=== PATIENT | male | born 2000 | race African-American/Black ===

== ENCOUNTER 2023-07-25 23:58 | Emergency (ER) | payer OTHER, SELFPAY ==
[2023-07-25 23:58] VITALS: BP 130/80; PULSE 84; RESP 15; TEMP 36.5; O2SAT 100
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
[2023-07-26 01:29] VITALS: BP 132/76; PULSE 82; RESP 16; O2SAT 99
== END 2023-07-26 01:30 | disposition home or self-care (01) ==
LOC: ANHED 07-26 01:13
PROVIDERS: Emergency Provider Emergency Medicine
DX: F20.9 Schizophrenia, unspecified (principal); Z59.00 Homelessness unspecified
CPT/HCPCS: 99281

== ENCOUNTER 2023-07-27 08:08 | Emergency (ER) | payer OTHER, SELFPAY ==
[2023-07-27 08:32] VITALS: BP 123/68; PULSE 82; RESP 20; TEMP 36.8; O2SAT 100
[2023-07-27 08:45] LABS: Basophils Percent Auto 0.3 % (0.2-1.2); Eosinophils Absolute Auto 0.1 K/mm3 (0-0.3); Eosinophils Percent Auto 1.9 % (0-4.4); Hematocrit 45.1 % (42.0-52.0); Hemoglobin 13.9 g/dL (14.0-18.0); Immature Granulocyte Absolute 0.06 K/mm3 (0.00-0.031); Immature Granulocyte Percent A 0.9 % (0-0.5); Lymphocytes Absolute Auto 1.74 K/mm3 (0.9-3.2); Lymphocytes Percent Auto 27.3 % (18.3-44.2); Mean Corpuscular HGB Conc 30.8 g/dl (32-36); Mean Corpuscular Hemoglobin 27.6 pg (26-34); Mean Corpuscular Volume 89.5 fl (80-100); Mean Platelet Volume 9.4 fl (7.4-10.4); Monocytes Absolute Auto 0.2 K/mm3 (0.1-0.6); Monocytes Percent Auto 2.4 % (2.6-8.5); Neutrophils Absolute Auto 4.3 K/mm3 (1.3-6.7); Neutrophils Percent Auto 67.2 % (45.5-73.1); Platelet Count Result 269 k/mm3 (150-375); Red Blood Count 5.04 M/mm3 (4.6-6.20); Red Cell Distribution Width 12.8 % (11.5-14.5); White Blood Count 6.4 K/mm3 (4.5-10.0)
[2023-07-27 08:50] LABS: Appearance Urine Clear (Clear); Bacteria Urine None Seen /hpf; Bilirubin Urine Negative (Negative); Blood Urine Negative (Negative); Color Urine Yellow (Yellow); Glucose Urine UA Negative (Negative); Ketones Urine Negative (Negative); Leukocyte Esterase Ur Trace LEU/UL (Negative); Nitrate Urine Negative (Negative); Non Pathogenic Casts 0-2; Protein Urine Negative (Negative); RBC Urine 0-2 /hpf (0-2); Specific Grav Ur 1.009 (1.001-1.035); Squamous Epithelial Cell Urine None seen /hpf (Few); Urobilinogen Urine 0.2 mg/dL (<2.0); WBC Urine 0-5 /hpf
[2023-07-27 08:53] LABS: Alanine Aminotransferase 28 U/L (6-50); Albumin Level 4.4 g/dL (3.5-5.1); Alkaline Phosphatase 90 U/L (38-126); Anion Gap 12 mmol/L (8-16); Aspartate Amino Transferase 35 U/L (17-59); Bilirubin,Total 0.4 mg/dL (0.2-1.3); Blood Urea Nitrogen 12 mg/dL (9-20); Carbon Dioxide 26 mmol/L (22-30); Chloride 103 mmol/L (98-107); Estimated CRCL calculation 104 ml/min; Estimated Glomerular Filt Rate > 60; Glucose 80 mg/dL (65-110); Potassium 4.1 mmol/L (3.4-5.0); Sodium 141 mmol/L (137-145)
[2023-07-27 09:01] LABS: Amphetamine Screen Urine Negative (Negative); Barbiturate Screen Urine Negative (Negative); Benzodiazepines Screen Urine Positive (Negative); Cannabinoid Screen Urine Negative (Negative); Cocaine Screen Urine Negative (Negative); Methadone Screen Urine Negative (Negative); Opiate Screen Urine Negative (Negative); Phencyclidine Screen Urine Negative (Negative)
[2023-07-27 09:10] LABS: Ethanol < 10 mg/dL (<10)
[2023-07-27 09:15] LABS: Add Urine Microscopic? YES
[2023-07-27 09:21] LABS: Influenza A QL RT-PCR Negative (Negative); Influenza B QL RT-PCR Negative (Negative); SARS-CoV-2 RNA PCR Negative (Negative)
[2023-07-27 09:24] LABS: Thyroid Stimulating Hormone 0.468 uIU/mL (0.465-4.680)
--- NOTE | 2023-07-27 12:40 | PC.NURSE ---
meme from [facility] states that there are mental health beds available at [facility]. [facility]ella at [facility] screening patient [phone]
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
--- NOTE | 2023-07-27 14:41 | PCCCNOTE ---
Unable to reach [facility] contacted and info faxed to see if placement possible.
--- NOTE | 2023-07-27 14:55 | PCCCNOTE ---
Referral made to [facility] for placement
[2023-07-28 05:15] VITALS: BP 106/58; PULSE 71; RESP 20; TEMP 36.6; O2SAT 97
--- NOTE | 2023-07-28 07:46 | PC.NURSE ---
Pt given breakfast and fluids updated on POC
--- NOTE | 2023-07-28 10:35 | PC.NURSE ---
Up in room. Awaiting placement to nursing facility. Pt cooperative.
--- NOTE | 2023-07-28 11:45 | PC.NURSE ---
Addendum entered by Neymar Stapleton RN 07/28/23 11:48: informed from [facility], pt was deflected by [facility]. attempting other facilities for possible placement. left message, awaiting call back. Original Note: informed from [facility]
--- NOTE | 2023-07-28 12:18 | PC.NURSE ---
Pt ambulatory out of dept. States he needs a cab to go to his mom's house. Care coordination unable to find [facility] placement at this time.
== END 2023-07-28 12:20 | disposition home or self-care (01) ==
PROVIDERS: General Practice; Emergency Provider Emergency Medicine
DX: F20.9 Schizophrenia, unspecified (principal); Z59.00 Homelessness unspecified; Z11.52 Encounter for screening for COVID-19
CPT/HCPCS: 36415; 80053; 80307; 81001; 84443; 85025; 87636; 99284